=== PATIENT | female | born 1985 | race Caucasian/White ===

== ENCOUNTER 2018-07-11 09:23 | Outpatient (CLI) | payer OTHER ==
--- NOTE | 2018-07-11 10:40 | RAD ---
THREE VIEWS RIGHT FOOT: DATE: 07/11/18. HISTORY: Right third toe pain. FINDINGS: The Lisfranc joint is normally aligned. There is no evidence of a fracture, dislocation, or other os seous abnormality involving the right foot. IMPRESSION: No acute osseous abnormality. POS: [facility]
--- NOTE | 2018-07-11 10:41 | RAD ---
TWO VIEWS RIGHT TIBIA AND FIBULA: DATE: 07/11/18. HISTORY: Distal right lower extremity pain. FINDINGS: There is no evidence of a fracture, dislocation, or other osseous abnormality involving the right tib ia or fibula. IMPRESSION: No acute osseous abnormality. POS: [facility]
== END 2018-07-11 09:24 | disposition home or self-care (01) ==
LOC: RAD-FRANK 09:23
PROVIDERS: ATTEND Nurse Practitioner Family
DX: M79.671 Pain in right foot (principal)